=== PATIENT | female | born 1960 | race Caucasian/White ===

== ENCOUNTER 2017-06-28 20:53 | Emergency (ER) | payer BC ==
[2017-06-28] MEDS ORDERED: ASPIRIN 81 MG CHEWABLE TABLETS PO ONE (21:15)
[2017-06-28 21:16] VITALS: TEMP 98.2; BMI 34.9
--- NOTE | 2017-06-28 21:17 | PDOC ---
Rapid Medical Evaluation Chief Complaint: Chest Pain Time Seen by Provider: 06/28/17 21:12 Medical Evaluation: Allergies Allergy/AdvReac Type Severity Reaction Status Date / Time No Known Allergies Allergy Verified 07/05/16 17:53 Pt presents with complaint of : left sided chest pain and palpitations. palpitations worse after eating + epigastric pain. On brief exam: Patient alert ox3, I have ordered the following: cbc, cmp, cardiac enzymes, EKG, chest xray cardiac work up ordered. Pt will go to the Emergency Dept for further workup 06/28/17 21:14 06/28/17 21:16
[2017-06-28 21:34] LABS: BASOPHIL 0.8 % (0-2.0); MCHC 33.7 g/dl (32.0-36.0); MEAN CELL VOLUME 97.8 fl (80-96); MEAN PLT VOLUME 8.4 fl (7.5-11.1); PLATELET COUNT 256 K/MM3 (134-434); RDW 12.1 % (11.6-15.6); WHITE BLOOD COUNT 7.6 K/mm3 (4.0-10.0)
[2017-06-28 21:55] LABS: INR 0.99 (0.82-1.09); PROTHROMBIN TIME (PATIENT) 11.2 SEC (9.98-11.88)
[2017-06-28 22:14] LABS: ANION GAP 6 (8-16); BILIRUBIN,TOTAL 0.4 mg/dL (0.2-1.0); CALCIUM 9.1 mg/dL (8.5-10.1); CO2 27 mmol/L (21-32); CREATININE 0.6 mg/dL (0.55-1.02); GLUCOSE,RANDOM 78 mg/dL (74-106); MAGNESIUM 2.2 mg/dL (1.8-2.4); SGOT/AST 16 U/L (15-37); SGPT/ALT 30 U/L (12-78); TOT PROT 7.9 g/dl (6.4-8.2)
[2017-06-28 22:17] LABS: ALK PHOS 100 U/L (45-117); CPK 111 IU/L (26-192); TROPONIN I < 0.02 ng/ml (0.00-0.05)
[2017-06-28] MEDS ORDERED: ASPIRIN 81 MG CHEWABLE TABLETS ONE (22:44)
--- NOTE | 2017-06-28 23:05 | PDOC ---
History of Present Illness - General History Source: Patient <Roger Hudson - Last Filed: 06/28/17 23:39> - General History Source: Patient Exam Limitations: No Limitations - History of Present Illness Initial Comments: 06/28/17 23:44 The patient is a 57 year old female with no significant PMH who presents to the emergency department with left sided chest pain, left hand numbness, nausea, and palpitations for the past week. The patient describes the chest pain as pressure like with radiation to the left back. The patient notes that the palpitations worsen after eating. The patient states that she has been feeling particularly anxious over the past week. Her most recent BP was 173/96. The patient denies shortness of breath, headache and dizziness. The patient denies any recent travel. Denies fever, chills, vomit, diarrhea and constipation. Allergies: NKA Social history: No reported alcohol, drug or cigarette use PCP: Dr. Gomez <Manisha Cee - Last Filed: 06/28/17 23:49> - General Chief Complaint: Chest Pain Stated Complaint: STOMACH PAIN Time Seen by Provider: 06/28/17 21:12 Past History - Past Medical History COPD: No - Suicide/Smoking/Psychosocial Hx Smoking Status: No Smoking History: Never smoked Have you smoked in the past 12 months: No Number of Cigarettes Smoked Daily: 0 Information on smoking cessation initiated: No Hx Alcohol Use: No Drug/Substance Use Hx: No Substance Use Type: None <Roger Hudson - Last Filed: 06/28/17 23:39> <Manisha Cee - Last Filed: 06/28/17 23:49> - Past Medical History Allergies/Adverse Reactions: Allergies Allergy/AdvReac Type Severity Reaction Status Date / Time No Known Allergies Allergy Verified 07/05/16 17:53 Home Medications: Ambulatory Orders Pantoprazole Sodium [Protonix] 40 mg PO DAILY #30 tablet. 06/28/17 Review of Systems - Review of Systems Able to Perform ROS?: Yes Comments:: 06/28/17 23:45 CONSTITUTIONAL: Absent: fever, no chills, no fatigue EYES: Absent: visual changes ENT: Absent: ear pain, no sore throat CARDIOVASCULAR: Present: left chest pain with radiation to the left back. palpitations. RESPIRATORY: Absent: cough, no SOB GI: Absent: abdominal pain, no vomiting, no constipation, no diarrhea Present: nausea GENITOURINARY: Absent: dysuria, no frequency, no hematuria MUSKULOSKELETAL: Absent: back pain, no arthralgia, no myalgia SKIN: Absent: rash NEURO: Absent: headache Present: left hand numbness <JayeManisha - Last Filed: 06/28/17 23:49> *Physical Exam - Vital Signs Last Vital Signs Temp Pulse Resp BP Pulse Ox 98.2 F 74 18 173/96 100 06/28/17 21:14 06/28/17 21:14 06/28/17 21:14 06/28/17 21:14 06/28/17 21:14 <Roger Hudson - Last Filed: 06/28/17 23:39> - Vital Signs Last Vital Signs Temp Pulse Resp BP Pulse Ox 98.2 F 68 17 146/93 98 06/28/17 21:14 06/28/17 23:38 06/28/17 23:38 06/28/17 23:38 06/28/17 23:38 - Physical Exam Comments: 06/28/17 23:49 GENERAL: Well developed, well nourished. Awake and alert. No acute distress. HEENT: Normocephalic, atraumatic. PERRLA, EOMI. No conjunctival pallor. Sclera are non- icteric. Moist mucous membranes. Oropharynx is clear. NECK: Supple. Full ROM. No JVD. Carotid pulses 2+ and symmetric, without bruits. No thyromegaly. No lymphadenopathy. CARDIOVASCULAR: Regular rate and rhythm. No murmurs, rubs, or gallops. Distal pulses are 2+ and symmetric. PULMONARY: No evidence of respiratory distress. Lungs clear to auscultation bilaterally. No wheezing, rales or rhonchi. ABDOMINAL: Soft. Non-tender. Non-distended. No rebound or guarding. No organomegaly. Normoactive bowel sounds. MUSCULOSKELETAL Normal range of motion at all joints. No bony deformities or tenderness. No CVA tenderness. EXTREMITIES: No cyanosis. No clubbing. No edema. No calf tenderness. SKIN: Warm and dry. Normal capillary refill. No rashes. No jaundice. NEUROLOGICAL: Alert, awake, appropriate. Cranial nerves 2-12 intact. No deficits to light touch and temperature in face, upper extremities and lower extremities. No motor deficits in the in face, upper extremities and lower extremities. Normal speech. PSYCHIATRIC: Cooperative. Good eye contact. Appropriate mood and affect. <Manisha Cee - Last Filed: 06/28/17 23:49> ED Treatment Course - LABORATORY CBC & Chemistry Diagram: 06/28/17 21:21 06/28/17 21:21 - ADDITIONAL ORDERS Additional order review: Laboratory Results 06/28/17 06/28/17 21:21 21:21 PT with INR 11.20 INR 0.99 Sodium 140 Potassium 3.9 Chloride 107 Carbon Dioxide 27 Anion Gap 6 L BUN 10 Creatinine 0.6 Creat Clearance w eGFR > 60 Random Glucose 78 Calcium 9.1 Magnesium 2.2 Total Bilirubin 0.4 AST 16 ALT 30 Alkaline Phosphatase 100 Creatine Kinase 111 Troponin I < 0.02 Total Protein 7.9 Albumin 4.0 06/28/17 21:21 RBC 3.89 MCV 97.8 H MCHC 33.7 RDW 12.1 MPV 8.4 Neutrophils % 47.0 Lymphocytes % 42.9 H Monocytes % 6.3 Eosinophils % 3.0 Basophils % 0.8 - Medications Given in the ED: ED Medications Discontinued Medications Generic Name Dose Route Start Last Admin Trade Name Freq PRN Reason Stop Dose Admin Aspirin 162 mg 06/28/17 21:15 06/28/17 22:47 Asa - PO 06/28/17 21:16 162 mg ONCE ONE Administration <Roger Hudson - Last Filed: 06/28/17 23:39> - LABORATORY CBC & Chemistry Diagram: 06/28/17 21:21 06/28/17 21:21 - ADDITIONAL ORDERS Additional order review: Laboratory Results 06/28/17 06/28/17 21:21 21:21 PT with INR 11.20 INR 0.99 Sodium 140 Potassium 3.9 Chloride 107 Carbon Dioxide 27 Anion Gap 6 L BUN 10 Creatinine 0.6 Creat Clearance w eGFR > 60 Random Glucose 78 Calcium 9.1 Magnesium 2.2 Total Bilirubin 0.4 AST 16 ALT 30 Alkaline Phosphatase 100 Creatine Kinase 111 Troponin I < 0.02 Total Protein 7.9 Albumin 4.0 06/28/17 21:21 RBC 3.89 MCV 97.8 H MCHC 33.7 RDW 12.1 MPV 8.4 Neutrophils % 47.0 Lymphocytes % 42.9 H Monocytes % 6.3 Eosinophils % 3.0 Basophils % 0.8 - Medications Given in the ED: ED Medications Discontinued Medications Generic Name Dose Route Start Last Admin Trade Name Delaney PRN Reason Stop Dose Admin Aspirin 162 mg 06/28/17 21:15 06/28/17 22:47 Asa - PO 06/28/17 21:16 162 mg ONCE ONE Administration <Manisha Cee - Last Filed: 06/28/17 23:49> Medical Decision Making - Medical Decision Making 06/28/17 23:24 Dr. Hudson: The scribe's documentation has been prepared under my direction and personally reviewed by me in its entirery. I confirm that the note above accurately reflects all work, treatment, procedures, and medical decision making performed by me. 06/28/17 23:37 BP 146/93. Pt blood pressure has improved. Pt no longer has any symptoms that she presented with. Will discharged. <Roger Hudson - Last Filed: 06/28/17 23:39> *DC/Admit/Observation/Transfer - Discharge Dispostion Admit: No <Roger Hudson - Last Filed: 06/28/17 23:39> - Attestations Scribe Attestion: 06/28/17 23:49 Documentation prepared by Manisha Cee, acting as medical billing specialist for Roger Hudson DO. 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 Print Language: SOUTH AFRICAN - Post Discharge Activity
[2017-06-28 23:39] VITALS: BP 146/93; PULSE 68
--- NOTE | 2017-06-29 10:05 | EKG ---
Test Reason : Blood Pressure : / mmHG Vent. Rate : 067 BPM Atrial Rate : 067 BPM P-R Int : 148 ms QRS Dur : 078 ms QT Int : 398 ms P-R-T Axes : 063 008 038 degrees QTc Int : 420 ms SINUS RHYTHM WITH OCCASIONAL PREMATURE VENTRICULAR COMPLEXES POSSIBLE INFERIOR INFARCT , AGE UNDETERMINED ABNORMAL ECG NO PREVIOUS ECGS AVAILABLE Confirmed by GEOVANNA WILLIAMSON MD ([id number]) on 06/29/2017 10:04:50 AM Referred By: Confirmed By:GEOVANNA WILLIAMSON MD
== END 2017-06-28 23:48 | disposition home or self-care (01) ==
LOC: JER 20:53
DX: R07.9 Chest pain, unspecified (principal)
CPT/HCPCS: 36415; 71020-TC; 80053; 82550; 83735; 84484; 85025; 85610; 93005; 93010; 99282-25